=== PATIENT | female | born 1985 | race Caucasian/White ===

== ENCOUNTER 2023-11-08 13:56 | Emergency (ER) | payer SELFPAY ==
[2023-11-08 13:57] VITALS: BP 172/119; PULSE 95; RESP 18; TEMP 36.4; O2SAT 99; BMI 28.3
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
[2023-11-08 15:12] LABS: Internal QC Validated? YES +Cl - CLEAR BKGD; Pregnancy, Urine Negative Negative
[2023-11-08 15:34] VITALS: BP 172/119; PULSE 95; RESP 18; TEMP 36.4; O2SAT 99
[2023-11-08 17:09] LABS: HIV - WCH Non-Reactive (Nonreactive); Syphilis Antibodies Non-reactive
== END 2023-11-08 15:45 | disposition home or self-care (01) ==
PROVIDERS: Physician Assistant; Emergency Provider Emergency Medicine; Visit Provider Emergency Medicine
DX: Z11.3 Encounter for screening for infections with a predominantly sexual mode of transmission (principal); T76.21XA Adult sexual abuse, suspected, initial encounter
CPT/HCPCS: 81025; 86703; 86780; 87210; 87491; 87591; 99282

== ENCOUNTER → 2025-04-22 | Outpatient (CLI) | payer OTHER, SELFPAY ==
--- NOTE | 2025-04-22 09:31 | RAD_ITS ---
PROCEDURE: SHOULDER MIN 2 VIEWS 04/22/2025 REASON FOR EXAM: PAIN. Injury 10 days ago. TECHNIQUE: Procedure Code: RADSH Modality: DX Procedure: SHOULDER MIN 2 VIEWS Laterality: Left COMPARISON: None. RAD/Shoulder min 2 Views IMPRESSION: Mild left acromioclavicular joint degenerative changes are seen, with partial j oint narrowing noted. The left glenohumeral joint shows no significant abnormality. No fracture or dislocation is seen. Reading Location: [place] [address]
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
== END | disposition home or self-care (01) ==
LOC: MTRAD 09:31
PROVIDERS: PCP Family Medicine
DX: M25.512 Pain in left shoulder (principal)
CPT/HCPCS: 73030